=== PATIENT | female | born 1980 | race Caucasian/White ===

== ENCOUNTER 2017-08-08 08:24 | Observation (INO) | payer MEDICAID, SELFPAY ==
[2017-08-02 09:04] LABS: Hematocrit 40.7 % (37-47); Hemoglobin 13.1 g/dl (12.0-15.0); Mean Corp Hgb Conc 32.2 g/gl (32-36); Mean Corpuscular Hgb 30.1 pg (27.0-32.0); Mean Corpuscular Volume 93.6 fL (81-99); Mean Platelet Vol. 10.9 fl (6.2-12.0); Platelet Count 312 K/mm3 (150-450); RBC Distribution Width CV 12.7 % (11.6-14.6); RBC Distribution Width SD 42.5 fl (35.1-43.9); Red Blood Count 4.35 M/mm3 (4.2-5.4); White Blood Count 7.2 K/mm3 (4.4-11.0)
[2017-08-02 09:05] LABS: Scan Indicated on CBC? Y/N NO
[2017-08-02 09:21] LABS: Partial Thromboplast Time 32.2 Seconds (24.1-36.2)
[2017-08-02 09:38] LABS: Pregnancy, Serum, hCG Quali. NEGATIVE Negative (0-9 Nonpreg)
[2017-08-08] VITALS (12 sets, daily range): BP systolic 119–145; BP diastolic 67–82; PULSE 62–98; RESP 15–18; TEMP 36.2–36.9; O2SAT 94–100; BMI 33.7
[2017-08-08 06:08] LABS: Internal QC Validated? YES +Cl - CLEAR BKGD; Pregnancy, Urine Negative Negative
[2017-08-08] MEDS: Vasopressin 20 UNITS/ML Vial (06:51)
--- NOTE | 2017-08-08 07:30 | HYST_PTH ---
PATIENT: PARIS RIOS LOC: MS2 U#:[id number] AGE/SX: 36/F ROOM: [facility] [place] RE08/08/[address]: Dr. Neel Hensley MD : [id number] BED: 1 DIS: 08/09/2017 SPEC #: [id number] RECD: 08/08/17 11:48 STATUS: PRATIMA SARWAT #: [id number] GREG: 08/08/17 07:[address]: Neel Hensley DEPT: SURGICAL PATHOLOGY RECD BY: Anastacia Shanks ENTERED: 08/08/17 12:50 SP TYPE: HYSTERECT OTHR DR: Dr. Kevin Sanabria MD Tissues: Uterus, NOS Procedures: Surgery Specimen Level V HEADER OPERATION: Hysterectomy, lap assisted vaginal, bilateral salpingectomy PRE-OP DIAGNOSIS: Pelvic and perineal pain and secondary dysmenorrhea, stress incontinence TISSUE SUBMITTED: Cervix, uterus and bilateral tubes MICROSCOPIC DIAGNOSIS Uterus, hysterectomy: Cervix ? nabothian cysts and chronic inflammation. Endometrium ? secretory endometrium. Myometrium ? adenomyosis. Right fallopian tube ? no pathologic change. Left fallopian tube ? benign paratubal cyst. AM:joce 08/09/17 MICROSCOPIC DESCRIPTION Slides are reviewed. GROSS DESCRIPTION Received in fixative is one container labeled with the patient's name and designated uterus. The specimen consists of a uterus with attached cervix and right and left fallopian tubes. The uterus with cervix measures 9.5 x 6.5 x 4.5 cm and weighs 123 gm. The ectocervix is unremarkable. The cervical os is oval in contour. The endocervical canal measures 3 cm in length and is grossly unremarkable. The elongated endometrial cavity measures 4.5 x 1.8 cm. The velvety, light goyal endometrium measures up to 0.2 cm in thickness. The myometrium measures 2 cm in average thickness and is free of mass lesions. Both the right and left fallopian tubes have Filshie type clips that are intact. Both fallopian tubes are similar in appearance measuring 6 cm in average length and 0.7 cm in average diameter. Normal fimbriated ends are visible. 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 right fallopian tube, 8 ? left fallopian tube. / AM:joce 08/08/17 TC:5 CPT: 74079
--- NOTE | 2017-08-08 07:34 | PCM.DC.VHY ---
Discharge Diet: No Restrictions Discharge Activity: Return to Normal Activity, May Not Drive, May not drive while taking narcotic pain medications., May Shower Return to work on:: 09/10/17 May shower in (days): 0 May resume sexual activity in: 6 weeks Call your doctor if your incision/area has: Sudden Increased Bleeding, Increased Pain/ Swelling, Increased Redness, Foul Smelling Discharge, Swelling at the incision site Call your doctor if you observe: Fever of 101 or Higher, Inability to urinate, Inability to have a bowel movement, Using more than one pad per hour, Shortness of breath, Chest pain, Calf discomfort, Uncontrolled pain Remove Dressing in (days):: 2 Cleanse incision/area with: Soap & Water Allergies/Adverse Reactions: Allergies morphine Allergy (Verified 08/08/17 06:14) CHEST HEAVINESS Medications to take at Discharge Ibuprofen [Motrin] 800 mg PO TID PRN PRN #30 tab 08/08/17 Oxycodone [Oxyir] 5 - 10 mg PO Q4H PRN PRN 7 Days #30 tab 08/08/17 The following prescriptions were given: Oxycodone [Oxyir] 5 - 10 mg PO Q4H PRN PRN 7 Days #30 tab PRN Reason: Mod-Severe Pain (4-10/10) Ibuprofen [Motrin] 800 mg PO TID PRN PRN #30 tab PRN Reason: Pain Primary Care Physician: Kevin Sanabria [Primary Care Provider] - Please Follow Up With: Neel Hensley MD When: one week Proposed Discharge Date: 08/09/17
--- NOTE | 2017-08-08 07:40 | OP.PCM_ITS ---
Problem List (1) Pelvic pain Status: Chronic (2) Dysmenorrhea Status: Chronic (3) Secondary dysmenorrhea Status: Chronic (4) Stress bladder incontinence, female Status: Chronic Report of Operation Date of Procedure: 08/08/17 Pre-Operative Diagnosis: Secondary dysmenorrhea s/p endometrial ablation, chronic pelvic pain, stress urinary incontinence Post-Operative Diagnosis: Same Surgery/Procedure Performed:: Laparoscopic Assisted Vaginal Hysterectomy, Bilateral Salpingectomy, Transvaginal Obturator Sling Placement Description of Surgical Findings:: Normal appearing uterus, ovaries, and fallopian tubes. Both fallopian tubes had previously had Filshie clips placed. Urethral with hypermobility. Liver and stomach appeared normal. No significant abdominal or pelvic scarring or adhesions were present. surveillance specialist: Delvis Peña Type of Anesthesia:: General Anesthesiologist: Christopher Clement Specimen's removed: Uterus, Cervix, Bilateral fallopian tubes Drains: Dempsey Estimated Blood Loss (mL): 100cc Fluids Replaced: 1100cc Description of Procedure: Beulah was taken to the OR with IV running. Two grams of Cefotetan were given intravenously for prophylaxis. SCDs were in place and operational from the preoperative area through surgery and into recovery. General anesthesia was introduced without complication. She was then prepped and draped in the dorsal lithotomy position. A dempsey catheter was placed. A weighted speculum was placed, then anterior lip of the cervix grasped and a uterine manipulator was placed. The weighted speculum was then removed. Attention was then directed to the abdomen. A 5mm vertical incision was made in the lower base of the umbilicus. The underlying subcutaneous tissue was dissected down to the level of fascia using blunt dissection with a Giana clamp. The abdominal wall was then elevated and a Veress needle placed through the umbilical defect into the abdominal cavity. AThe abdomen was then inflated to 12 Torr with CO2 gas. The Veress needle was removed and replace with a 5mm laparoscopic trocar and sleeve. The trocar was removed. A thorough survey of the abdomen and pelvis was then performed. Findings as above. Two lateral sideports were then placed approximately 4cm below the level of the umbilicus to right and left of the right and left inferior epigastric vessels. Hemostasis was excellent after port placement. A thorough survey of the abdomen and pelvis was performed. Attention was first directed to the left fallopian tube which was grasped at the fimbriated end, elevated, and the mesosalpinx dissected from the fimbriated end to the cornua of the uterus with the ligasure device. The left round ligament was then cauterized and cut. The Broad ligament was then dissected from the cornua of the uterus to the uterocervical junction. This dissection was carried out close to the uterus. The anterior and posterior leaves were then . The vesicocervical peritoneum was then undermined bluntly and cut in a transverse fashion thus creating a bladder flap. The left uterine artery was then cauterized and cut. Dissection was the carried out close to the cervix down to the level of the left uterosacral ligament. Attention was then directed to the right side of the uterus and fallopian tube which was dissected in a similar fashion as the left side. Attention was then directed to the vagina. A weighted speculum was placed. The uterine manipulator was removed and the cervix grasped with two single toothed tenacula for traction. The vesicovaginal epithelium was then injected with a dilute Pitressin solution. The bovie cautery was then used to cut the vaginal mucosa circumfrentially. The vaginal mucosa was pushed superiorly allowing visualization of the peritoneum. The vesicovaginal peritoneum was then entered sharply. The rectovaginal peritoneum was then entered sharply. A long weighted speculum was placed through the posterior defect. Using Eileen clamps the uterosacral ligaments on each side were clamped, cut and suture ligated. These ties were held for future incorporation into the lateral vagina cuff. The remaining paracervical tissue on each side was clamped cut and suture ligated. The specimen was then removed. The vaginal mucosa was then closed in the midline with 0-vicryl suture. The vaginal cuff angles were closed with interrupted sutures of 0-Vicryl suture. Incorporated in these ties were the previously held uterosacral ligament ties. The cuff was then closed with figure of eight sutures of 0-Vicryl. The vaginal mucosal was the incised from about 1 cm distal to the urethral meatus to 3 cm superiorly. The underlying tissue was dissected towards the obturator membrane bilaterally with the Metzembaum scissors. A trocar guide was then placed on the right side through this defect and the obturator membrane was pierced. The right side of the TVOT mesh was then placed using the trocar through the skin of the right thigh about 2 cm lateral to the crural fold 2cm above the level of the urethral meatus. The mesh was placed in a similar fashion on the left side. The mesh was then adjusted beneath the urethral. The mesh was then trimmed at the skin on each side. The vagina mucosa was closed over the mesh with interrupted sutures of 3- 0 Vicryl. Attention was redirected to the abdomen which was reinflated. The laparoscope was used to insure hemostasis at all pelvic surgical sites. Brennan was placed over the surgical bed. The laparoscopic ports were the removed after evacuation of the Co2 gas from the abdomen. The port site incisions were closed with 4-0 Monocryl suture. Sponge, instrument, and needle counts were correct. Beulah was reversed from anesthesia and taken to the recovery room in stable condition. Grafts/Implants Used: Transvaginal Obturator Midurethral Sling - Complications none - Admit VTE Documentation VTE Present on Admission: No VTE Mechan Device Prophylaxis: SCD's VTE Pharm Prophylaxis ordered?: No
[2017-08-08] MEDS: Bupivacaine 0.25% 30 ML Vial (09:09)
[2017-08-08] MEDS: Dextrose 5%-Lactated Ringers 1,000 ML 125 ML IV ×2 (12:07→19:41)
[2017-08-08] MEDS: HYDROmorphone 1 MG/ML Syringe IV ×2 (12:08→16:17)
[2017-08-08] MEDS: 0.9% NaCl Peripheral Flush Adult/Peds IV ×2 (12:08→21:55)
[2017-08-08] MEDS: Ketorolac 30 MG/ML Syringe IV ×2 (15:15→21:55)
[2017-08-08] MEDS: Acetaminophen 500 MG Tablet 1000 MG PO ×2 (15:15→21:54)
[2017-08-08] MEDS: Cefazolin 1 GM/50 ML BAG IV ×2 (15:16→23:44)
[2017-08-08] MEDS: Ondansetron 4 MG/2 ML Vial IV (19:41)
[2017-08-08] MEDS: oxyCODONE 5 MG Tablet PO (23:47)
[2017-08-09 02:20] VITALS: BP 116/64; PULSE 68; RESP 16; TEMP 37; O2SAT 98
[2017-08-09] MEDS: 0.9% NaCl Peripheral Flush Adult/Peds IV (02:55)
[2017-08-09] MEDS: Ketorolac 30 MG/ML Syringe IV (02:55)
[2017-08-09] MEDS: Acetaminophen 500 MG Tablet 1000 MG PO (05:14)
[2017-08-09 05:55] LABS: Hematocrit 34.1 % (37-47); Mean Corp Hgb Conc 32.3 g/gl (32-36); Mean Corpuscular Hgb 30.6 pg (27.0-32.0); Platelet Count 343 K/mm3 (150-450); RBC Distribution Width SD 43.7 fl (35.1-43.9); Red Blood Count 3.59 M/mm3 (4.2-5.4); Scan Indicated on CBC? Y/N NO; White Blood Count 15.6 K/mm3 (4.4-11.0)
[2017-08-09] MEDS: oxyCODONE 5 MG Tablet PO ×2 (07:10→10:33)
--- NOTE | 2017-08-09 07:49 | PCM.PN.OB ---
Subjective: Feeling less nauseated today. Pain reasonably controlled. Has not been able to void yet after catheter removal at 0500. Objective: Afeb VSS - Physical Exam General: Alert, Oriented x3, Cooperative, No apparent distress Lungs: Clear to auscultation, Normal air movement Cardiovascular: Regular rate, Regular Rhythm Abdomen: Soft, Non Tender, Non-Distended, - - Incision dressings dry. Extremities: No edema Skin: No rashes Neurological: Neuro grossly intact Psych/Mental Status: Normal Affect Comment: Only scant vaginal spotting Vital Signs Temp Pulse Resp BP Pulse Ox 98.6 F 68 16 116/64 98 08/09/17 02:20 08/09/17 02:20 08/09/17 02:20 08/09/17 02:20 08/09/17 02:20 Oxygen Flow Rate (L/min) 2 Oxygen Delivery Method Room Air Weight: 173 lb 1.006 oz Body Mass Index (BMI) 33.7 Intake and Output for Last 24 Hours 08/07/17 08/08/17 08/09/17 23:59 23:59 23:59 Intake Total 3686 / 3686 662 / 662 Output Total 1575 / 1575 525 / 525 Balance 2111 / 2111 137 / 137 Laboratory Tests Past 24 Hrs 08/09/17 05:40 WBC 15.6 H RBC 3.59 L Hgb 11.0 L Hct 34.1 L MCV 95.0 MCH 30.6 MCHC 32.3 RDW 13.0 RDW Differential 43.7 Plt Count 343 MPV 11.0 Medical Necessity - Tobacco Use Smoking Status: Never smoker Assessment/Plan Doing well on POD#1. Will continue to observe for voiding. If unable to void with full bladder will discharge home with leg bag and remove catheter next week for trial of voiding. Discharge instructions and warnings given.
--- NOTE | 2017-08-09 07:54 | PCM.DC.SUM ---
Discharge Date and Diagnosis Date of Admission: 08/08/17 Date of Discharge: 08/09/17 - Primary Discharge Diagnosis S/P LAVH/bilateral salpingectomy, TVOT placement - Secondary Discharge Diagnosis Chronic Problems Pelvic pain (Chronic) Dysmenorrhea (Chronic) Secondary dysmenorrhea (Chronic) Stress bladder incontinence, female (Chronic) Hospital Course and Treatment Operations: - - LAVH/bilateral salpingectomy/TVOT Summary of Care Provided: The patient is a 36 year old F [admitted for scheduled surgery. Surgery performed without complication. Postoperative course unremarkable. Discharged home on POD#1.] Discharge Diet: No Restrictions Discharge Activity: Return to Normal Activity, May Not Drive, May not drive while taking narcotic pain medications., May Shower Return to work on:: 09/10/17 May shower in (days): 0 May resume sexual activity in: 6 weeks Call your doctor if your incision/area has: Sudden Increased Bleeding, Increased Pain/ Swelling, Increased Redness, Foul Smelling Discharge, Swelling at the incision site Call your doctor if you observe: Fever of 101 or Higher, Inability to urinate, Inability to have a bowel movement, Using more than one pad per hour, Shortness of breath, Chest pain, Calf discomfort, Uncontrolled pain Remove Dressing in (days):: 2 Cleanse incision/area with: Soap & Water Home Medications: Medications to take at Discharge Ibuprofen [Motrin] 800 mg PO TID PRN PRN #30 tab 08/08/17 Oxycodone [Oxyir] 5 - 10 mg PO Q4H PRN PRN 7 Days #30 tab 08/08/17 Following Prescrptions Were Given to Patient: Oxycodone [Oxyir] 5 - 10 mg PO Q4H PRN PRN 7 Days #30 tab PRN Reason: Mod-Severe Pain (4-10/10) Ibuprofen [Motrin] 800 mg PO TID PRN PRN #30 tab PRN Reason: Pain Primary Care Physician: Kevin Sanabria [Primary Care Provider] - Please Follow Up With: Neel Hensley MD When: one week Disposition: Home Minutes spent on discharge:: 15 Patient Condition:: Good Medical Necessity - Tobacco Use Smoking Status: Never smoker Meaningful Use Info Meaningful Use Diagnoses (Choose all that apply): None applicable
[2017-08-09 08:06] VITALS: BP 116/81; PULSE 65; RESP 18; TEMP 36.8; O2SAT 100
--- NOTE | 2017-08-09 08:13 | NURSING ---
PT UNABLE TO VOID S/P CATH REMOVAL-BLADDER SCANNED FOR 60 ML, CATHETER HAS ONLY BEEN OUT FOR 1 1/2 HOURS-ENCOURAGED PT TO AMBULATE, CONTINUE TO DRINK FLUIDS AND WE WILL MONITOR
== END 2017-08-09 11:16 | disposition home or self-care (01) ==
LOC: MS2 08:25 → SDC 08:25
PROVIDERS: Admitting Provider Obstetrics & Gynecology; Family Provider Family Medicine; PCP Family Medicine; Visit Provider Obstetrics & Gynecology
PROC: 0UT9FZZ Resection of Uterus, Via Natural or Artificial Opening With Percutaneous Endoscopic Assistance (ICD-10-PCS; CPT 51992; principal; 2017-08-08 07:05)
DX: N39.3 Stress incontinence (female) (male) (principal); N88.8 Other specified noninflammatory disorders of cervix uteri; N80.0 Endometriosis of uterus; N83.8 Other noninflammatory disorders of ovary, fallopian tube and broad ligament; F32.9 Major depressive disorder, single episode, unspecified; Z79.899 Other long term (current) drug therapy
CPT/HCPCS: 00940; 51992; 58552; 36415; 81025; 84703; 85027; 85610; 85730; 86850; 86900; 88307; 96361; 96365; 96366; 96375; 96376; 99218; J7120; A4216; G0378; G0379; J2405

== ENCOUNTER → 2017-08-22 16:03 | Outpatient (CLI) | payer MEDICAID, SELFPAY | PROVIDERS: Visit Provider Obstetrics & Gynecology | DX: R10.9 Unspecified abdominal pain (principal) | CPT/HCPCS: 87086; 87088 ==

== ENCOUNTER → 2020-07-07 | Outpatient (CLI) | payer MEDICAID, SELFPAY ==
[2019-02-09 09:37] VITALS: BMI 33.7
[2020-07-07 15:40] LABS: Follicle Stimulating Hormone 8.6 mIU/mL; Thyroid Stim Hormone (TSH) 0.53 uIU/mL (0.358-3.74)
== END | disposition home or self-care (01) ==
LOC: LABSPEC 13:05
PROVIDERS: PCP Family Medicine; Visit Provider Obstetrics & Gynecology
DX: N95.1 Menopausal and female climacteric states (principal)
CPT/HCPCS: 83001; 84443

== ENCOUNTER → 2023-07-20 | Outpatient (CLI) | payer MEDICAID, SELFPAY | END | disposition home or self-care (01) | PROVIDERS: PCP Family Medicine; Referring Provider Family Medicine; Visit Provider Family Medicine | DX: G47.19 Other hypersomnia (principal) | CPT/HCPCS: 95810 ==